=== PATIENT | female | born 1955 | race African-American/Black ===

== ENCOUNTER 2021-12-01 14:14 | Emergency (ER) | payer MEDICAID ==
[~2021-12-01] VITALS: Ht 160 cm; Wt 113.0 kg
[2021-12-01 14:18] VITALS: BP 166/84
[2021-12-01] MEDS ORDERED: ACETAMINOPHEN 325MG TABLET PO STA (14:47)
[2021-12-01] MEDS ORDERED: ASPIRIN 81MG TABLET PO ONE (15:00)
[2021-12-01 15:40] LABS: HEMATOCRIT. 43.9 % (36.0-48.0); HEMOGLOBIN. 14.3 g/dL (12.0-16.0); MEAN CORPUSCULAR HEMOGLOBIN 25.3 pg (28.0-32.0); MEAN CORPUSCULAR VOLUME 77.6 fL (81.0-99.0); PLATELET 280 x1000/uL (130-400); RED BLOOD CELL COUNT 5.67 mill/uL (4.2-5.4); RED CELL DISTRIBUTION WIDTH 14.7 % (11.6-14.6)
[2021-12-01 15:47] LABS: CHLORIDE 102 mEq/L (98-107)
[2021-12-01] MEDS ORDERED: AZIT500T8 MT (16:09)
[2021-12-01] MEDS ORDERED: ACET-2708 MT (16:09)
[2021-12-01 16:14] LABS: PLATELET ESTIMATE NORMAL
[2021-12-01] MEDS ORDERED: AZITHROMYCIN 500 MG TABLET PO ONE (17:15)
== END 2021-12-01 17:15 | disposition left against medical advice (07) ==
LOC: ER 14:14
DX: R07.89 Other chest pain (principal); R06.02 Shortness of breath
CPT/HCPCS: 36415; 71045; 80053; 83880; 84484; 85025; 99284